=== PATIENT | male | born 1960 | race Caucasian/White ===

== ENCOUNTER 2016-12-31 20:42 | Emergency (ER) | payer OTHER ==
--- NOTE | ~2016-12-31 | CT71 ---
[facility]. [facility] A Service of [facility] & [facility] RADIOLOGY TEXT RESULTS PATIENT: MAI MOTT LOCATION: SED : 56 UNIT #: [id number] AGE: [address]: Uche Armendariz MD SEX: M ORDER DR: [id number] [place] [id number] E MR#: [id number] Acc #: [id number] NAME: MAI MOTT : 1960 SEX: M STUDY DATE/TIME: 12/31/2016 21:37 UNIT: SED ROOM: STUDY DESCRIPTION: CT Head Wo Contrast Attending Physician: Uche Armendariz M.D. Ordering Physician: Uche Armendariz M.D. Primary Care Physician: Bety Schwarz A.P.R.N. MEDICAL IMAGING REPORT This report is preliminary unless electronic signature is present. EXAM CT brain without contrast. HISTORY Fell and hit head today with loss of consciousness. Laceration to top of head. FINDINGS CT brain without contrast demonstrates no intracranial hemorrhage, mass or edema. No midline shift or ventricular dilatation or extraaxial fluid collection. Scalp laceration at the vertex with adjacent subcutaneous gas. IMPRESSION 1. Negative CT brain. 2. Scalp laceration over the vertex. Dictated by... Will Elder M.D. THIS IS AN ELECTRONICALLY VERIFIED REPORT Will Elder M.D. at 12/31/2016 10:49 PM MARIEL/rajni TD: 12/31/2016 22:22 JOB #: [id number] MEDICAL IMAGING REPORT Page 1 of 1
[~2016-12-31 20:42] MED LIST: LISINOPRIL-HCTZ1 T14 PO; NAPROSYN500 MG PO; PRAVASTATIN SOD40 MG PO
[2016-12-31] MEDS ORDERED: OMEPRAZOLE40 M1 (20:53)
[2016-12-31 21:32] LABS: BASOPHIL# 0.1 X10e3 (0-0.3); BASOPHIL% 0.7 % (0-2.5); EOSINOPHIL# 0.3 X10e3 (0-0.7); EOSINOPHIL% 3.2 % (0.0-7.0); HEMATOCRIT 39.8 % (38.0-50.0); HEMOGLOBIN 14.1 gm/dL (13.0-16.0); LYMPHOCYTE# 1.8 X10e3 (1.0-3.5); LYMPHOCYTE% 20.7 % (17.0-45.0); MEAN CELL VOLUME 96.9 FL (83-96); MEAN CORPUSCULAR HEMOGLOBIN 34.3 PG (28-34); MEAN CORPUSCULAR HGB CONC 35.4 g/dL (30-36); MEAN PLATELET VOLUME 7.4 FL (6.5-11.5); MONOCYTE# 0.8 X10e3 (0-1.0); NEUTROPHIL# 5.8 X10e3 (1.5-7.1); NEUTROPHIL% 66.4 % (40-75); PLATELET COUNT 246 X10e3 (140-420); RED BLOOD COUNT 4.11 X10e (3.90-5.60); RED CELL DISTRIBUTION WIDTH 13.7 % (11.0-15.5); WHITE BLOOD COUNT 8.8 X10e3 (4.0-10.5)
[2016-12-31 21:34] LABS: DIFF IND NO
[2016-12-31 21:46] LABS: POC - CKMB 2.7 ng/mL (0.0-7.9); POC - TROPONIN <0.05 ng/mL (<=0.05)
[2016-12-31 21:56] LABS: CALCIUM SERUM 8.7 mg/dL (8.4-10.2); CREATININE SERUM 1.5 mg/dL (0.6-1.4); GLOM FILT RATE Estimated 50.6 mL/min (>60)
== END 2016-12-31 23:10 | disposition home or self-care (01) ==
LOC: SED 20:42
PROVIDERS: Emergency Medicine
DX: S01.01XA Laceration without foreign body of scalp, initial encounter (principal); Z23 Encounter for immunization; E87.1 Hypo-osmolality and hyponatremia; F10.129 Alcohol abuse with intoxication, unspecified; I10 Essential (primary) hypertension; F17.200 Nicotine dependence, unspecified, uncomplicated; Z79.899 Other long term (current) drug therapy; W18.30XA Fall on same level, unspecified, initial encounter; Y92.009 Unspecified place in unspecified non-institutional (private) residence as the place of occurrence of the external cause
CPT/HCPCS: 12004; 36415; 70450; 80048; 82553; 84484; 85025; 90471; 90715; 96365; 99283; G0480; J0690

== ENCOUNTER 2017-01-13 09:22 | Emergency (ER) | payer OTHER ==
[~2017-01-13 09:22] MED LIST changes: +OMEPRAZOLE40 M1
== END 2017-01-13 10:43 | disposition home or self-care (01) ==
LOC: SED 09:22
DX: S01.01XD Laceration without foreign body of scalp, subsequent encounter (principal); I10 Essential (primary) hypertension; F17.200 Nicotine dependence, unspecified, uncomplicated; Z79.899 Other long term (current) drug therapy
CPT/HCPCS: 99281